=== PATIENT | male | born 1940 | race Caucasian/White ===

== ENCOUNTER 2019-04-14 16:18 | Inpatient (IN) | payer MEDICARE, BC ==
[~2019-04-14] VITALS: Ht 177 cm; Wt 98.4 kg
[~2019-04-14 16:18] MED LIST: HEMP OIL PO; LEVO-T112 MCG PO; MELO7.5 PO; Salmon Oil 1,01 EACH PO; TRAM50 PO; ZESTORETIC 20-121 EA PO
--- NOTE | 2019-04-16 09:56 | NUR ---
Patient confirms NPO status and agrees with scheduled surgery. History, Chart, Medications and Allergies reviewed before start of procedure. Patient reports completing Chlorhexadine shower X2 prior to admission to hospital.Lungs clear T/O to Auscultation. Surgical site prepped with 2% Chlorhexidine cloth wipe.
[2019-04-16] MEDS ORDERED: [UNRECOGNIZED DRUG - REMARK] (10:07)
--- NOTE | 2019-04-16 14:40 | NUR ---
ASSUMED CARE OF PATIENT AT THIS TIME. PATIENT SLEEPING. RESP E/U. BIOX 95% ON RA. VSS. CONT TO MONITOR.
[2019-04-16] MEDS ORDERED: ALLO100 PO (16:48)
--- NOTE | 2019-04-16 18:39 | NUR ---
SHIFT SUMMARY PATIENT AWAKENED BY PT THIS AFTERNOON; UP TO WALK IN [place]. PATIENT DENIES NEED FOR PAIN MED AT THIS TIME; APAP AND TORADOL ADMIN. CIRC CHECKS TO LLE WNL. DRESSING D&I. TAKING PO. NO C/O AT THIS TIME.
[2019-04-17 05:32] LABS: BASOPHILS ABSOLUTE AUTO 0.01 K/mm3 (0.00-0.23); BASOPHILS PERCENT AUTO 0 % (0-2); EOSINOPHILS ABSOLUTE AUTO 0.01 K/mm3 (0.00-0.68); EOSINOPHILS PERCENT AUTO 0 % (0-6); Hematocrit 42.5 % (37.0-53.0); Hemoglobin 14.4 g/dL (13.5-17.5); IMMATURE GRAN ABSOLUTE AUTO 0.09 K/mm3 (0.00-0.10); IMMATURE GRAN PERCENT AUTO 1 % (0-1); LYMPHOCYTES ABSOLUTE AUTO 1.65 K/mm3 (0.84-5.20); LYMPHOCYTES PERCENT AUTO 10 % (21-46); MONOCYTES ABSOLUTE AUTO 1.14 K/mm3 (0.16-1.47); MONOCYTES PERCENT AUTO 7 % (4-13); Mean Corpuscular HGB 35.1 pg (26.0-34.0); Mean Corpuscular HGB Conc 33.9 g/dL (31.5-36.5); NEUTROPHILS ABSOLUTE AUTO 13.77 K/mm3 (1.96-9.15); NEUTROPHILS PERCENT AUTO 83 % (41-73); Platelet Count 227 K/mm3 (150-400); RDW Coefficient Variation 12.5 % (11.7-14.2); RDW Standard Deviation 47.9 fL (35.1-46.3); White Blood Cell Count 16.67 K/mm3 (4.00-11.30)
[2019-04-17 05:34] LABS: Mean Corpuscular Volume 104 fL (80-100)
[2019-04-17 06:07] LABS: Anion Gap 8 mmol/L (6-16); Blood Urea Nitrogen 28 mg/dL (8-24); Bun/Creatinine Ratio 22.6 (12.0-20.0); CO2, Blood 30 mmol/L (21-32); Calcium, Blood 9.7 mg/dL (8.5-10.1); Chloride, Blood 101 mmol/L (98-108); Creatinine, Blood 1.24 mg/dL (0.60-1.20); Glomerular Filtration Rate >60 (60-); Glucose, Blood 131 mg/dL (70-99); Potassium, Blood 4.2 mmol/L (3.5-5.5); Sodium, Blood 139 mmol/L (136-145)
--- NOTE | 2019-04-17 07:07 | NUR ---
POD 1 S/P L DAVIDE. PT VSS T/O NIGHT. DRESSING CDI, PAIN MGD PER EMAR W/REP RELIEF. PT FRANCI REG PO, NO C/O N/V, IS VOIDING URINE W/O DIFFICULTY. IV SL PER ORDERS. PT AMB W/FWW+ABS, FRANCI WELL. PT IS USING CALL LIGHT FOR ASSISTANCE. REP GIVEN TO DAY RN.
[2019-04-17] MEDS ORDERED: Percocet 5-3251 EACH PO (10:29)
[2019-04-17] MEDS ORDERED: Celebrex200 MG PO (10:30)
[2019-04-17] MEDS ORDERED: ASPI81CH PO (10:31)
--- NOTE | 2019-04-17 11:25 | NUR ---
PATIENT D/C'D HOME WITH AT THIS TIME; BOTH STATE UNDERSTANDING OF MEDS, WOUND CARE, ACTIVITY, OP PT, F/U APPT, ETC. PATIENT STATES PAIN WELL CONTROLLED. TAKING PO. VOIDING. NO C/O AT THIS TIME.
== END 2019-04-17 11:25 | disposition home or self-care (01) | DRG 470 ==
LOC: SURS 04-16 08:49 → PRE IP 04-16 10:15 → SURS 04-16 13:38
PROVIDERS: ADMIT Orthopaedic Surgery
PROC: 0SRB04A Replacement of Left Hip Joint with Ceramic on Polyethylene Synthetic Substitute, Uncemented, Open Approach (ICD-10-PCS; principal; 2019-04-16 10:15)
DX: M16.12 Unilateral primary osteoarthritis, left hip (principal); I10 Essential (primary) hypertension
CPT/HCPCS: 36415; 72170; 80048; 85025; 86850; 86900; 86901; 88300; 97110; 97116; 97162; 97530; C1776; J0171; J0690; J0735; J1100; J1885; J2250; J2370; J2405; J2704; J2710; J2795; J3010; J7120